=== PATIENT | male | born 1960 | race Caucasian/White ===

== ENCOUNTER 2017-03-08 09:10 | Emergency (ER) | payer SELFPAY ==
--- NOTE | 2017-03-10 01:33 | ER ---
ADMIT: 03/08/2017 RM/LOC: ER [facility] MR#: [id number] [facility] [address] [place], [place] [id number] GORAN FRIEDMAN [facility] [place] [address] Emergency Room Report SEX: M AGE: 56 : 1960 DATE: 03/08/2017 TIME: 0910 hours. Please refer to my T-sheet for complete H and P. Briefly, the patient is a 56-year-old, comes in with a tick imbedded in his left shoulder, he could not get out. He was out in the trees last night looking for mushrooms. Took several ticks off him, but he did not see this one, saw it was imbedded in his shoulder. After he noticed the tick, he felt like he maybe a little short of breath. He has a known history of cardiac disease, so he came in for evaluation. PHYSICAL EXAMINATION: VITAL SIGNS: Stable. HEENT: Grossly normal. LUNGS: Clear. HEART: Regular. EXTREMITIES and SKIN: Left shoulder has a tick embedded in the top of the shoulder. EMERGENCY DEPARTMENT COURSE: I removed it with forceps, the head appeared to come out without difficulty. The patient tolerated well. We did an EKG, it was sinus rhythm, rate 75, no changes. I had long discussions with him. He said he does not have his nitroglycerin as he lives in [place], he would like a script for that, so I did write him one. ASSESSMENT: 1. Tick embedded in his left shoulder, removed with forceps in full. 2. Short of breath, may be slight anxiety component to the tick bite. PLAN: Keep the area clean. Return if problems. I did give him a script for nitroglycerin if they want to fill it or he can wait to get home to use his as directed that he left at home. Chacho Merino MD/ ольга JOB #: [id number] CC: Chacho Merino MD, Attending Physician UNKNOWN, Family Physician
== END 2017-03-08 09:59 | disposition home or self-care (01) ==
LOC: ER 09:10
PROC: 0HCCXZZ Extirpation of Matter from Left Upper Arm Skin, External Approach (ICD-10-PCS; principal; 2017-03-08)
DX: S40.252A Superficial foreign body of left shoulder, initial encounter (principal); R06.02 Shortness of breath; I10 Essential (primary) hypertension; Z79.899 Other long term (current) drug therapy; Z87.891 Personal history of nicotine dependence; W45.8XXA Other foreign body or object entering through skin, initial encounter